=== PATIENT | male | born 1970 | race Caucasian/White ===

== ENCOUNTER 2017-06-12 16:06 | Emergency (ER) | payer MEDICAID, OTHER ==
[2017-06-12 16:13] VITALS: TEMP 98.1
[2017-06-12] MEDS ORDERED: Oxycodone/Acetaminophen 5/325 mg Tab ONE (16:33)
--- NOTE | 2017-06-12 16:49 | C.PDOC ---
History Of Present Illness 46 year old male presents to the ER with a complaint of a headache and left ankle/foot pain after he slipped on ice yesterday, causing him to twist his left ankle and hit the back of his head. Denies LOC, nausea, vomiting, weakness , or numbness. Time Seen by Provider: 06/12/17 16:26 Chief Complaint (Nursing): Lower Extremity Problem/Injury History Per: Patient History/Exam Limitations: no limitations Onset/Duration Of Symptoms: Days Current Symptoms Are (Timing): Still Present Recent travel outside of the [place]: No - Ankle/Foot Description Of Injury: Twisted Past Medical History Reviewed: Historical Data, Nursing Documentation, Vital Signs Vital Signs: Last Vital Signs Temp 98.1 F 06/12/17 16:10 Pulse 84 06/12/17 20:13 Resp 18 06/12/17 20:13 BP 116/81 06/12/17 20:13 Pulse Ox 98 06/12/17 20:20 - [facility] Procedures ENDOSCOP EXC OR DEST OF LESION OR TISSUE OF ESOPHA (01/10/14) PACKED CELL TRANSFUSION (01/10/14) Family History: States: Unknown Family Hx - Social History Hx Tobacco Use: Yes Hx Alcohol Use: No Hx Substance Use: No - Immunization History Hx Influenza Vaccination: No Review Of Systems Gastrointestinal: Negative for: Nausea, Vomiting Musculoskeletal: Positive for: Foot Pain Neurological: Positive for: Headache. Negative for: Weakness, Numbness Physical Exam - Physical Exam Appears: Non-toxic Skin: Normal Color, Warm, Dry Head: Atraumatic, Normacephalic, No Tenderness, No Swelling Eye(s): bilateral: Normal Inspection, PERRL, EOMI Ear(s): Bilateral: Normal Neck: Normal, No Midline Cervical Tenderness, No Paracervical Tenderness, Supple Back: No Vertebral Tenderness, No Paraspinal Tenderness Extremity: Normal ROM (x4), Other (Left foot significantly swollen and ecchymotic, ROM and dorsiflexion intact.) Pulses: Left Dorsalis Pedis: Normal, Right Dorsalis Pedis: Normal Neurological/Psych: Oriented x3, Normal Speech, Normal Motor, Normal Sensation ED Course And Treatment O2 Sat by Pulse Oximetry: 98 (Room air) Pulse Ox Interpretation: Normal - Other Rad Left foot x-ray X-Ray: Interpreted by Me, Viewed By Me Interpretation: No acute fractures or dislocations. Left ankle x-ray X-Ray: Interpreted by Me, Viewed By Me Interpretation: No acute fractures or dislocations. - CT Scan/US CT Left Lower Extremity Other Rad Studies (CT/US): Read By Radiologist, Radiology Report Reviewed CT/US Interpretation: EXAM: CT Left Lower Extremity Without Intravenous Contrast. EXAM DATE/TIME: Exam ordered 06/12/2017 6:20 PM. CLINICAL HISTORY: 46 years old, male; Injury or trauma; Fall; Initial encounter; Swelling (edema) ; Ankle and foot; Left;. Additional info: Foot and ankle injury, severe swelling. TECHNIQUE: Axial computed tomography images of the left lower extremity without intravenous contrast. All CT. scans at this facility use one or more dose reduction techniques, viz.: automated exposure control;. ma/kV adjustment per patient size (including targeted exams where dose is matched to indication; i.e. head); or iterative reconstruction technique. Coronal and sagittal reformatted images were created and reviewed. COMPARISON: No relevant prior studies available. FINDINGS: Bones/joints: 2 bone islands are seen within the navicular bone. A bone island is noted within the. distal tibia just above the tibiotalar joint. There is a small plantar calcaneal spur. A traction. osteophyte is noted on the dorsal calcaneus at the Achilles tendon insertion site. No acute fracture. No dislocation. Soft tissues: There is soft tissue swelling noted over the medial and lateral malleolus extending onto. the dorsum of the foot. IMPRESSION: Soft tissue swelling with no radiographic evidence of fracture CT Head Other Rad Studies (CT/US): Read By Radiologist, Radiology Report Reviewed CT/US Interpretation: PROCEDURE: CT HEAD WITHOUT CONTRAST. HISTORY: fall. COMPARISON: None available. TECHNIQUE: Axial computed tomography images were obtained through the head/brain without intravenous contrast. Radiation dose: Total exam DLP = 926.01 mGy-cm. This CT exam was performed using one or more of the following dose reduction techniques: Automated exposure control, adjustment of the mA and/or kV according to patient size, and/or use of iterative reconstruction technique. FINDINGS: HEMORRHAGE: No intracranial hemorrhage. BRAIN: No mass effect or edema. No atrophy or chronic microvascular ischemic changes. VENTRICLES: No hydrocephalus. CALVARIUM: Unremarkable. PARANASAL SINUSES: Unremarkable as visualized. No significant inflammatory changes. MASTOID AIR CELLS: Unremarkable as visualized. No inflammatory changes. OTHER FINDINGS: None. IMPRESSION: No acute intracranial pathology identified. Progress Note: CT head, left foot x-ray, and left ankle x-ray ordered. Foot and ankle x-rays were both negative, due to clinical significance of left foot will order CT of left lower extremity. Tramadol administered. On reevaluation, patient reports improvement of pain, results of CT exam was negative for fracture, discussed results with patient who understand. Patient placed in posterior short leg splint by CP and checked by me and given crutches with instructions. Will discharge home with Rx and instructions to follow up with ortho for further evaluation. Disposition - Disposition Referrals: Amaya Bhandari MD [Staff Provider] - Disposition: HOME/ ROUTINE Disposition Time: 20:15 Condition: STABLE Additional Instructions: Follow up with your PMD and Orthopedist within 1-2 days. Return to ED if feel worse. 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 - Scribe Statement The provider has reviewed the documentation as recorded by the Scribrashard Argueta All medical record entries made by the Salazaribrashard were at my direction and personally dictated by me. I have reviewed the chart and agree that the record accurately reflects my personal performance of the history, physical exam, medical decision making, and the department course for this patient. I have also personally directed, reviewed, and agree with the discharge instructions and disposition.
--- NOTE | 2017-06-12 16:57 | RAD ---
PROCEDURE: Left Ankle Radiographs. HISTORY: fall COMPARISON: None FINDINGS: BONES: Normal. No fracture. JOINTS: Normal. No osteoarthritis. Ankle mortise maintained. Talar dome intact SOFT TISSUES: Few soft tissue swelling including lower leg subcutaneous reticulated edema OTHER FINDINGS: None. IMPRESSION: Soft tissue swelling. No fracture or dislocation
--- NOTE | 2017-06-12 17:41 | CT ---
PROCEDURE: CT HEAD WITHOUT CONTRAST. HISTORY: fall COMPARISON: None available. TECHNIQUE: Axial computed tomography images were obtained through the head/brain without intravenous contrast. Radiation dose: Total exam DLP = 926.01 mGy-cm. This CT exam was performed using one or more of the following dose reduction techniques: Automated exposure control, adjustment of the mA and/or kV according to patient size, and/or use of iterative reconstruction technique. FINDINGS: HEMORRHAGE: No intracranial hemorrhage. BRAIN: No mass effect or edema. No atrophy or chronic microvascular ischemic changes. VENTRICLES: No hydrocephalus. CALVARIUM: Unremarkable. PARANASAL SINUSES: Unremarkable as visualized. No significant inflammatory changes. MASTOID AIR CELLS: Unremarkable as visualized. No inflammatory changes. OTHER FINDINGS: None. IMPRESSION: No acute intracranial pathology identified.
--- NOTE | 2017-06-12 17:56 | RAD ---
PROCEDURE: Left Foot Radiographs. HISTORY: fall COMPARISON: None available. FINDINGS: BONES: Vertical lucency seen on a single view of the 3rd proximal phalanx, possibly nondisplaced fracture versus artifact ; correlate with physical exam in order to assess for point tenderness. Remainder the visualized osseous structures appear intact without acute displaced fracture. JOINTS: No dislocation. SOFT TISSUES: Soft tissue swelling. No evidence of radiopaque foreign body. OTHER FINDINGS: None. IMPRESSION: Soft tissue swelling. Vertical lucency seen on a single view of the 3rd proximal phalanx, possibly nondisplaced fracture versus artifact ; correlate with physical exam in order to assess for point tenderness.
--- NOTE | 2017-06-12 20:08 | CT ---
EXAM: CT Left Lower Extremity Without Intravenous Contrast EXAM DATE/TIME: Exam ordered 06/12/2017 6:20 PM CLINICAL HISTORY: 46 years old, male; Injury or trauma; Fall; Initial encounter; Swelling (edema); Ankle and foot; Left; Additional info: Foot and ankle injury, severe swelling TECHNIQUE: Axial computed tomography images of the left lower extremity without intravenous contrast. All CT scans at this facility use one or more dose reduction techniques, viz.: automated exposure control; ma/kV adjustment per patient size (including targeted exams where dose is matched to indication; i.e. head); or iterative reconstruction technique. Coronal and sagittal reformatted images were created and reviewed. COMPARISON: No relevant prior studies available. FINDINGS: Bones/joints: 2 bone islands are seen within the navicular bone. A bone island is noted within the distal tibia just above the tibiotalar joint. There is a small plantar calcaneal spur. A traction osteophyte is noted on the dorsal calcaneus at the Achilles tendon insertion site. No acute fracture. No dislocation. Soft tissues: There is soft tissue swelling noted over the medial and lateral malleolus extending onto the dorsum of the foot. IMPRESSION: Soft tissue swelling with no radiographic evidence of fracture
[2017-06-12 20:13] VITALS: BP 116/81; PULSE 84; RESP 18
[2017-06-12 20:18] VITALS: O2SAT 98
== END 2017-06-12 21:52 | disposition home or self-care (01) ==
LOC: C.ER 16:06
DX: S93.402A Sprain of unspecified ligament of left ankle, initial encounter (principal); W00.0XXA Fall on same level due to ice and snow, initial encounter